=== PATIENT | male | born 1960 | race Caucasian/White ===

== ENCOUNTER 2016-12-11 16:53 | Observation (INO) | payer BC ==
[2016-12-11] MEDS ORDERED: SODIUM CHLORIDE 0.9% 1,000 ML IV ONE (17:13)
[2016-12-11] MEDS ORDERED: ACETAMINOPHEN 325 MG TABLET PO STA (17:14)
--- NOTE | 2016-12-11 17:17 | ED Physician Documentation ---
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 had bloating and abdominal pain overnight a week ago which went away after a few hours and hadn't had it since until this morning when it recurred and has been constant all day with right lower quadrant pain, mild nausea and fever without vomiting or changes in bowel movements.) Review of Systems Ten Systems: 10 systems reviewed and negative Constitutional: reports: Fever, Chills Cardiac: reports: Reviewed and negative Respiratory: reports: Reviewed and negative : reports: Reviewed and negative PD PAST MEDICAL HISTORY - Past Medical History Past Medical History: No - Allergies Allergies/Adverse Reactions: Allergies Allergy/AdvReac Type Severity Reaction Status Date / Time No Known Drug Allergies Allergy Verified 12/11/16 17:00 - Social History Does the pt smoke?: No Does the pt have substance abuse?: No - Family History Family history: reports: Non contributory PD ED PE NORMAL - Vitals Vital signs reviewed: Yes - General General: Alert and oriented X 3, No acute distress - HEENT HEENT: PERRL, EOMI - Neck Neck: Supple, no meningeal sign, No bony TTP - Cardiac Cardiac: RRR, No murmur - Respiratory Respiratory: No respiratory distress, Clear bilaterally - Abdomen Abdomen: Normal bowel sounds, Soft, Other (TTP RLQ no G/R) - Back Back: No CVA TTP, No spinal TTP - Derm Derm: Normal color, Warm and dry - Extremities Extremities: No edema, No calf tenderness / cord - Neuro Neuro: Alert and oriented X 3, Normal speech - Psych Psych: Normal mood, Normal affect Results - Vitals Vitals: Vital Signs - 24 hr 12/11/16 12/11/16 12/11/16 17:00 18:25 19:25 Temperature 38.4 C H 39.4 C H 39.4 C H Heart Rate 109 H 109 H Respiratory 20 20 Rate Blood Pressure 135/85 H 135/85 H O2 Saturation 96 96 12/11/16 19:38 Temperature 39.4 C H Heart Rate 116 H Respiratory 18 Rate Blood Pressure 152/78 H O2 Saturation 94 Oxygen O2 Source Room air - Labs Labs: Laboratory Tests 12/11/16 12/11/16 17:40 17:40 WBC 10.1 RBC 5.31 Hgb 15.6 Hct 46.5 MCV 87.6 MCH 29.3 MCHC 33.4 RDW 12.6 Plt Count 359 MPV 7.0 L Neut # 9.4 H Lymph # 0.6 L [place] # 0.1 Eos # 0.1 Baso # 0.0 Absolute Nucleated RBC 0.01 Nucleated RBCs 0.0 Sodium 139 Potassium 3.7 Chloride 102 Carbon Dioxide 27 Anion Gap 10.0 BUN 17 Creatinine 1.2 Estimated GFR (MDRD) 62 L Glucose 114 H Calcium 9.1 Total Bilirubin 0.8 AST 19 ALT 18 Alkaline Phosphatase 47 Total Protein 7.1 Albumin 4.1 Globulin 3.0 Albumin/Globulin Ratio 1.4 Lipase 29 - Rads (name of study) Ct A/P Radiology: EMP read contemporaneously (appendicitis) PD MEDICAL DECISION MAKING - ED course ED course: 56-year-old gentleman with fever and right lower quadrant pain certainly concerning for appendicitis. Spoke with the on-call surgeon after labs were resulted, Dr. Licona at 603 p.m., recommend CT scan, will see in consult. Departure - Departure Disposition: ED Transfer to [facility] Clinical Impression: Ruptured appendicitis Condition: Stable
[2016-12-11] MEDS ORDERED: ACETAMINOPHEN 325 MG TABLET PO ONE (17:22)
[2016-12-11 17:52] LABS: BASOPHILS % (AUTO) 0.2 %; EOSINOPHILS # (AUTO) 0.1 10^3/uL (0.0-0.7); EOSINOPHILS % (AUTO) 0.5 %; HCT - HEMATOCRIT 46.5 % (42.0-52.0); HGB - HEMOGLOBIN 15.6 g/dL (14.0-18.0); LYMPHOCYTES # (AUTO) 0.6 10^3/uL (1.5-3.5); MEAN CORPUSCULAR HEMOGLOBIN 29.3 pg (27.0-31.0); MEAN CORPUSCULAR HGB CONC 33.4 g/dL (32.0-36.0); MEAN CORPUSCULAR VOLUME 87.6 fL (80.0-94.0); MONOCYTES # (AUTO) 0.1 10^3/uL (0.0-1.0); MONOCYTES % (AUTO) 0.7 %; NEUTROPHILS # (AUTO) 9.4 10^3/uL (1.5-6.6); NEUTROPHILS % (AUTO) 92.6 %; RED BLOOD COUNT 5.31 10^6/uL (4.70-6.10); RED CELL DISTRIBUTION WIDTH 12.6 % (12.0-15.0); UNCORRECTED WHITE BLOOD COUNT 10.1 x10^3/uL; WHITE BLOOD COUNT 10.1 x10^3/uL (4.8-10.8)
[2016-12-11 18:04] LABS: ALBUMIN/GLOBULIN RATIO 1.4 (1.0-2.2); BILIRUBIN,TOTAL 0.8 mg/dL (0.2-1.0); CALCIUM 9.1 mg/dL (8.5-10.3); CREATININE 1.2 mg/dL (0.6-1.2); POTASSIUM 3.7 mmol/L (3.5-5.0); TOTAL PROTEIN 7.1 g/dL (6.7-8.2)
--- NOTE | 2016-12-11 18:39 | SURGERY HX AND PHYSICAL(T) ---
Surgery H&P - Surgery H&P Intial Eval Date: 12/11/16 Procedure Date: 12/11/16 - Vital Signs Temperature: 39.4 C Heart Rate: 109 Respiratory Rate: 20 Blood Pressure: 135/85 O2 Saturation: 96 - Home Meds and Allergies Allergies/Adverse Reactions: Allergies Allergy/AdvReac Type Severity Reaction Status Date / Time No Known Drug Allergies Allergy Verified 12/11/16 17:00 - Height & Weight Height: 1.85 m Weight (kg): 87.09 kg - Surgical H&P H&P: General Surgery H&P History of Present Illness - Stated complaint Stated Complaint: RT LOW ABD PX/VOMITING - Chief complaint Chief Complaint: General abdominal pain - History obtained from History obtained from: Patient HPI: 58 yo male reports 1 day history of generalized crampy abdominal pain, 3/10 , sharp which later localized to the right lower quadrant. It is associated with a fever of 103F and chills. He states he had an episode of crampy mild pain a week ago and nothing else until today. He states he has had a previous colonoscopy around 2009 and it showed diverticulosis. He denies any stool changes, blood in his stool. Denies N/V/D, No SOB or CP He denies any recent travel outside the [facility] or [employer] or [employer]. 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 He denies any medications or other previous medical history. Review of Systems Ten Systems: 10 systems reviewed and negative Constitutional: reports: Fever, Chills Cardiac: reports: Reviewed and negative Respiratory: reports: Reviewed and negative : reports: Reviewed and negative PD PAST MEDICAL HISTORY - Past Medical History Past Medical History: Diverticulosis, BPH Past Surgical HX: T&A as child, Vasectomy - Allergies Allergies/Adverse Reactions: Allergies Allergy/AdvReac Type Severity Reaction Status Date / Time No Known Drug Allergies Allergy Verified 12/11/16 17:00 - Social History Does the pt smoke?: No Does the pt have substance abuse?: No - Family History Family history: reports: Non contributory PD ED PE NORMAL - Vitals Vital signs reviewed: Yes - General General: Alert and oriented X 3, No acute distress - HEENT HEENT: PERRL, EOMI - Neck Neck: Supple, no meningeal sign, No bony TTP - Cardiac Cardiac: RRR, No murmur - Respiratory Respiratory: No respiratory distress, Clear bilaterally - Abdomen Abdomen: Normal bowel sounds, Soft, TTP RLQ, + [place]. Non-distended. No masses or hernias palpated. Rectal Good tone, mild enlarged prostate, Negative stool guaiac - Back Back: No CVA TTP, No spinal TTP - Derm Derm: Normal color, Warm and dry - Extremities Extremities: No edema, No calf tenderness / cord - Neuro Neuro: Alert and oriented X 3, Normal speech - Psych Psych: Normal mood, Normal affect Vital Signs (72 hours) 12/11/16 12/11/16 12/11/16 17:00 18:25 18:39 Temperature 38.4 C H 39.4 C H 39.4 C H Heart Rate 109 H 109 H Respiratory 20 20 Rate Blood Pressure 135/85 H 135/85 H O2 Saturation 96 96 Laboratory Results - last 24 hr 12/11/16 12/11/16 17:40 17:40 WBC 10.1 RBC 5.31 Hgb 15.6 Hct 46.5 MCV 87.6 MCH 29.3 MCHC 33.4 RDW 12.6 Plt Count 359 MPV 7.0 L Neut # 9.4 H Lymph # 0.6 L [place] # 0.1 Eos # 0.1 Baso # 0.0 Absolute Nucleated RBC 0.01 Nucleated RBCs 0.0 Sodium 139 Potassium 3.7 Chloride 102 Carbon Dioxide 27 Anion Gap 10.0 BUN 17 Creatinine 1.2 Estimated GFR (MDRD) 62 L Glucose 114 H Calcium 9.1 Total Bilirubin 0.8 AST 19 ALT 18 Alkaline Phosphatase 47 Total Protein 7.1 Albumin 4.1 Globulin 3.0 Albumin/Globulin Ratio 1.4 Lipase 29 12/11/16 CT Abd/P without contrast: personal read followed by preliminary Acute appendicitis A: 58 yo male with acute appendicitis possibly early rupture NPO, IV abx with Zosyn 3.375 gm q 6 hours LR IV at 150 PT, PTT, UA type and screen OR today for Laparoscopic appendectomy possible open appendectomy Options and Risks & Benefits of surgery were discussed with patient including but not limited to , Bleeding, Infection, Risk of perforation, Anesthesia risks , Risk of already perforated appendix and abscess which would require a longer hospital stay and possibly a drain placement. risk of postoperative hernias, scars and skin irregularities. Risks of driving or flying while on narcotics were specifically discussed. All questions answered.
[2016-12-11] MEDS ORDERED: IBUPROFEN 800 MG TABLET PO STA (18:40)
[2016-12-11] MEDS ORDERED: IBUPROFEN 800 MG TABLET PO ONE (18:42)
[2016-12-11] MEDS ORDERED: IOPAMIDOL-300 100 ML VIAL IVP ONE (18:45)
[2016-12-11] MEDS ORDERED: PIPERACILLIN/TAZOBACTAM 3.375 GM in SODIUM CHLORIDE 0.9% MINIBAG 100 ML IV STA (18:48)
--- NOTE | 2016-12-11 19:15 | CT Preliminary Report ---
Exam: CT Abdomen/Pelvis W/ IMPRESSION: 1. Positive for acute appendicitis. No free air, bowel obstruction, or abscess. [facility] SITE ID: [id number]
--- NOTE | 2016-12-11 19:18 | CT Report ---
EXAM: CT ABDOMEN AND PELVIS EXAM DATE: 12/11/2016 06:44 PM. CLINICAL HISTORY: IV only, RLQ pain. COMPARISONS: None. TECHNIQUE: Routine helical CT imaging was performed through the abdomen and pelvis. IV contrast: 100 cc Isovue-300 IV. Enteric contrast: No. Reconstructions: Coronal and sagittal. In accordance with CT protocol optimization, one or more of the following dose reduction techniques w ere utilized for this exam: automated exposure control, adjustment of mA and/or KV based on patient s ize, or use of iterative reconstructive technique. FINDINGS: Lung Bases: Unremarkable. Liver: Normal. No masses. Gallbladder/Bile Ducts: Unremarkable. Spleen: Normal. Pancreas: Normal. Adrenal Glands: Normal. Kidneys: Normal. No masses or hydronephrosis. Peritoneal Cavity/Bowel: Normal. No free fluid, free air or adenopathy. No masses or acute inflammato ry process. The appendix is dilated with a thickened hyperenhancing wall and surrounding advanced inf lammation. The appendix measures up to 16 mm in outer diameter and is fluid-filled. There is no free air. No organized drainable abscess. Pelvic Organs: There is very small free fluid in the low pelvis. Vasculature: No aneurysms or other significant abnormality. Bones: There is moderate degenerative disk disease at L4-L5. Other: None. IMPRESSION: 1. Positive for acute appendicitis. No free air, bowel obstruction, or abscess. [facility] Referring Provider Line: [phone] SITE ID: [id number]
[2016-12-11 19:31] LABS: INR 1.1 (0.8-1.2); PT - PROTHROMBIN TIME 12.6 secs (9.9-12.6)
[2016-12-11 19:38] LABS: PARTIAL THROMBOPLASTIN TIME 21.4 secs (24.9-33.3)
[2016-12-11 19:58] LABS: BILIRUBIN,URINE NEGATIVE (NEGATIVE); PH,URINE 6.5 PH (5.0-7.5)
[2016-12-11] MEDS ORDERED: NEOSTIGMINE 1 MG/1 ML 10 ML MDV IVP ONE (20:00)
[2016-12-11] MEDS ORDERED: SUCCINYLCHOLINE 200 MG/10 ML VIAL IVP ONE (20:00)
[2016-12-11] MEDS ORDERED: ACETAMINOPHEN 1,000 MG/100 ML VIAL IV ONE (20:00)
[2016-12-11] MEDS ORDERED: MIDAZOLAM 2 MG/2 ML VIAL IVP ONE (20:00)
[2016-12-11] MEDS ORDERED: GLYCOPYRROLATE 1 MG/5 ML VIAL IVP ONE (20:00)
[2016-12-11] MEDS ORDERED: PROPOFOL 200 MG/20 ML VIAL IVP ONE (20:00)
[2016-12-11] MEDS ORDERED: DEXAMETHASONE 4 MG/ML VIAL IVP ONE (20:00)
[2016-12-11] MEDS ORDERED: KETOROLAC 30 MG/ML VIAL IVP ONE (20:00)
[2016-12-11] MEDS ORDERED: LIDOCAINE-MPF 2% 5 ML VIAL IM ONE (20:00)
[2016-12-11] MEDS ORDERED: fentaNYL 100 MCG/2 ML VIAL IVP ONE (20:00)
[2016-12-11] MEDS ORDERED: ONDANSETRON 4 MG/2 ML VIAL IVP ONE (20:00)
[2016-12-11] MEDS ORDERED: ROCURONIUM 50 MG/5 ML VIAL IVP ONE (20:00)
[2016-12-11 20:21] LABS: WBC,URINE 0-3 /HPF (0-3)
[2016-12-11] MEDS ORDERED: LACTATED RINGERS 1,000 ML IV ONE ×2 (20:28→21:21)
[2016-12-11] MEDS ORDERED: BUPIVACAINE 0.5%-EPI 1:200000 PF 30 ML VIAL SUBQ ONE (20:51)
[2016-12-11] MEDS ORDERED: PIPERACILLIN/TAZOBACTAM 3.375 GM in SODIUM CHLORIDE 0.9% MINIBAG 100 ML IV SCH ×2 (23:00→23:45)
[2016-12-11] MEDS ORDERED: ONDANSETRON 4 MG/2 ML VIAL IVP PRN (23:35)
[2016-12-11] MEDS ORDERED: PHENOL THROAT SPRAY 177 ML MM PRN (23:35)
[2016-12-11] MEDS ORDERED: SODIUM CHLORIDE FLUSH 0.9% 10 ML SYRINGE IVP PRN (23:35)
[2016-12-11] MEDS ORDERED: MORPHINE 2 MG/ML SYRINGE IVP PRN (23:35)
[2016-12-12] MEDS: PIPERACILLIN/TAZOBACTAM 3.375 GM in SODIUM CHLORIDE 0.9% MINIBAG 100 ML IV SCH ×2 (00:54→08:35)
[2016-12-12] MEDS: LACTATED RINGERS 1,000 ML IV SCH ×2 (00:56→08:34)
[2016-12-12] MEDS ORDERED: MORPHINE 2 MG/ML SYRINGE ONE (02:45)
[2016-12-12] MEDS ORDERED: KETOROLAC 15 MG/ML VIAL ONE ×2 (02:46→11:42)
[2016-12-12] MEDS ORDERED: ACETAMINOPHEN 1,000 MG/100 ML 100 ML IV ONE (02:46)
[2016-12-12] MEDS: ACETAMINOPHEN 1,000 MG/100 ML 100 ML IV SCH ×2 (03:00→10:47)
--- NOTE | 2016-12-12 04:24 | OPERATIVE REPORT ---
DATE OF SURGERY: 12/11/2016 00:00:00 PREOPERATIVE DIAGNOSIS: Acute appendicitis. POSTOPERATIVE DIAGNOSIS: Acute appendicitis with contained tip rupture. NAME OF PROCEDURE: Laparoscopic appendectomy. SURGEON: Ashkan Licona DO [employer] DIRECTOR: Hoda Jimenez ANESTHESIA: General by Juan Alberto Fam CRNA FINDINGS: Acute appendicitis with contained tip rupture. SPECIMEN: Appendix. COMPLICATIONS: None. ESTIMATED BLOOD LOSS: 20 mL. URINE OUTPUT: 175 mL. IV FLUIDS: 1200 mL. INDICATIONS: This 56-year-old male presented with right lower quadrant pain for 1 day duration associated with fever of 39.4 degrees Celsius and chills, without a leukocytosis. Computer tomography scan was consistent with acute appendicitis. A laparoscopic, possible open procedure as well as other options, were discussed with the patient. The risks and benefits including, but not limited to infection, bleeding, risk of abscess, risk of fistula, anesthesia risks scar formation, and skin irregularities as well as ventral hernias were discussed with the patient. The patient agreed to the procedure and signed consent. All questions were answered. DESCRIPTION OF PROCEDURE: The patient was taken to the operating room and placed in the supine position. General anesthesia was induced after SCDs were placed. A Stanton catheter was placed. Arms were tucked. The patient had been given IV Zosyn in the ED, and Ancef perioperatively. The patient was prepped and draped in usual sterile fashion. A timeout was completed verifying correct patient, procedure, site, position prior to start of procedure. Bupivacaine 0.5 % with epinephrine was used supraumbilically for a Veress needle entry as well as all trocar sites. A #15 blade puncture was created through the skin. The Veress needle was passed through the abdominal wall. Proper position was confirmed by aspiration and saline meniscus test. A 5 mm Optiview trocar was placed umbilically under direct vision. A second 5 mm trocar was placed suprapubically under direct vision. A 5 mm trocar was placed in the left lower quadrant under direct vision. The abdomen and pelvis were scanned with no signs of injury from the Veress needle. No gross pelvic disease was observed. The 5 mm umbilical trocar was exchanged for a 12 mm trocar under direct vision. The patient was then placed in Trendelenburg with left side down. The appendix base was clearly visualized, while the tip and the distal body were noted to be retrocecal and adhesed to the right lateral parietal peritoneum. The base of the appendix was grasped with a [place] and careful lateral dissection between the peritoneal wall and appendix was performed using blunt and hydrodissection, as well as, with the LigaSure. The appendix was freed from the adhesions, and the appendiceal tip was found to be acutely ruptured with a localized contained collection of pus, which was suctioned. The mesoappendix was dissected with a [place] and ligated with the LigaSure. The appendix was rather edematous. A single 45 mm blue load was fired across the base of the appendix with complete transection. The abdomen was irrigated with 2 liters of saline and suctioned. Hemostasis was maintained. The staple line was inspected and found to be intact with no sign of leakage or active bleeding. The appendix was then removed through the umbilical port. An Endo-close was used with 0 Vicryl to close the fascia of the 12 mm port followed by 2-0 Vicryl interrupted [id number] sutures under direct vision. The skin was then washed copiously and dried followed by 4-0 Monocryl sutures for subcuticular closure and then application of Mastisol, Steri-Strips, then gauze and Tegaderms. The appendix was examined on the back table and no appendicoliths were palpated and then it was sent to pathology. The patient tolerated the procedure well, was extubated, Stanton removed, and taken to PACU for recovery. All counts were correct. JOB #: [id number] EXT JOB #:[id number] LOYDA
[2016-12-12] MEDS: KETOROLAC 15 MG/ML VIAL IVP PRN ×2 (04:42→11:46)
[2016-12-12 05:24] LABS: CALCIUM 8.1 mg/dL (8.5-10.3); CREATININE 1.2 mg/dL (0.6-1.2); POTASSIUM 4.3 mmol/L (3.5-5.0)
[2016-12-12 05:31] LABS: BASOPHILS % (AUTO) 0.1 %; EOSINOPHILS % (AUTO) 0.1 %; HGB - HEMOGLOBIN 13.7 g/dL (14.0-18.0); LYMPHOCYTES % (AUTO) 2.3 %; MEAN CORPUSCULAR HEMOGLOBIN 29.1 pg (27.0-31.0); MEAN CORPUSCULAR HGB CONC 32.6 g/dL (32.0-36.0); MEAN CORPUSCULAR VOLUME 89.2 fL (80.0-94.0); MEAN PLATELET VOLUME 7.1 fL (7.4-11.4); MONOCYTES % (AUTO) 6.5 %; UNCORRECTED WHITE BLOOD COUNT 18.1 x10^3/uL; WHITE BLOOD COUNT 18.1 x10^3/uL (4.8-10.8)
[2016-12-12] MEDS: SODIUM CHLORIDE FLUSH 0.9% 10 ML SYRINGE IVP SCH ×2 (05:54→11:46)
[2016-12-12 06:17] LABS: BAND NEUTROPHILS % (MANUAL) 13 %; LYMPHOCYTES % (MANUAL) 2 %; NEUTROPHILS % (MANUAL) 79 %; NP AUTO DIFFERENTIAL? YES; NP MAN DIFFERENTIAL? NO; PLATELET ESTIMATE, MANUAL NORMAL (130-450,000) (NORMAL); TOTAL CELLS COUNTED 100
[2016-12-12] MEDS ORDERED: LACTATED RINGERS 1,000 ML IV ONE (08:19)
--- NOTE | 2016-12-12 08:58 | OPERATIVE REPORT ---
Operative Report - General Admit Date: 12/11/16 Procedure Date: 12/11/16 Pre-Op Diagnosis: Acute Appendicitis Operative Procedure: laparoscopic appendectomy Post-Op Diagnosis: Acute appendicitis with contained tip rupture - Procedure Note Anesthesia Technique: Primary Surgeon: Ashkan Licona DO Pathology: pending Estimated Blood Loss (in cc): 20 Complications: none - Other Other Information/Narrative: please see dictated op note
--- NOTE | 2016-12-12 09:04 | PROVIDER PROGRESS NOTE ---
Subjective - General Admit Date: 12/11/16 Procedure Date: 12/11/16 Post Op Days: 1 Procedure Performed: Laparoscopic Appendectomy - Review of Systems Wound/Incisions: positive: Dressing dry and intact Drain Type: none General: positive: No symptoms HEENT: positive: No symptoms Pulmonary: positive: No symptoms Cardiovascular: positive: No symptoms Gastrointestinal: positive: No symptoms Genitourinary: positive: No symptoms Musculoskeletal: positive: No symptoms Skin: positive: No symptoms Psychiatric: positive: No symptoms All Other Systems: positive: Reviewed and negative - Other Other Information/Narrative: Patient seen at bedside.He has done well post operatively. He states he feels good. Using incentive spirometer He has urinated, tolerated clears and is able to stand with out pain. Denies flatus. He stated that he has gone to urinate several times but small amounts of urine comes out. Bladder scan showed only 113 mL in bladder. No other events reported Objective - Patient Data Vital Signs: Vital Signs x48h Temp Pulse Resp BP Pulse Ox 12/12/16 08:11 36.5 C 80 18 118/75 97 12/12/16 06:59 36.5 C 73 18 109/66 98 12/12/16 03:10 36.6 C 96 18 130/78 97 12/12/16 02:13 36.8 C 89 16 129/79 98 12/12/16 01:10 36.7 C 82 18 123/75 99 Weight: Weight 12/10/16 12/11/16 12/12/16 23:59 23:59 23:59 Weight (kg) 87 kg Intake & Output: Intake and Output Totals x24h 12/10/16 12/11/16 12/12/16 23:59 23:59 23:59 Intake Total 1060 Output Total 300 Balance 760 - Lab Results Lab Results: 12/12/16 04:35 12/12/16 04:35 Other Lab Results: Lab Results x24hrs 12/12/16 12/12/16 Range/Units 04:35 04:35 WBC 18.1 H (4.8-10.8) x10^3/uL RBC 4.70 (4.70-6.10) 10^6/uL Hgb 13.7 L (14.0-18.0) g/dL Hct 42.0 (42.0-52.0) % MCV 89.2 (80.0-94.0) fL MCH 29.1 (27.0-31.0) pg MCHC 32.6 (32.0-36.0) g/dL RDW 13.0 (12.0-15.0) % Plt Count 330 (130-450) 10^3/uL MPV 7.1 L (7.4-11.4) fL Neut # Not Reportable Lymph # Not Reportable Glenn # Not Reportable Eos # Not Reportable Baso # Not Reportable Absolute Nucleated RBC Not Reportable Total Counted 100 Band Neuts % (Manual) 13 H (0 - 10) % Neutrophils # (Manual) 16.7 H (1.5-6.6) 10^3/uL Lymphocytes # (Manual) 0.4 L (1.5-3.5) 10^3/uL Monocytes # (Manual) 1.1 H (0.0-1.0) 10^3/uL Nucleated RBCs Not Reportable Differential Comment MANUAL DIFFERENTIAL Platelet Estimate NORMAL (130-450,000) (NORMAL) RBC Morph Micro Appear NORMAL APPEARANCE (NORMAL) Sodium 139 (135-145) mmol/L Potassium 4.3 (3.5-5.0) mmol/L Chloride 104 (101-111) mmol/L Carbon Dioxide 26 (21-32) mmol/L Anion Gap 9.0 (6-13) BUN 15 (6-20) mg/dL Creatinine 1.2 (0.6-1.2) mg/dL Estimated GFR (MDRD) 62 L (>89) Glucose 144 H (70-100) mg/dL Calcium 8.1 L (8.5-10.3) mg/dL - Current Medications Current Medications: Current Medications Generic Name Dose Route Start Last Admin Trade Name Freq PRN Reason Stop Dose Admin Acetaminophen 100 mls @ 400 mls/hr 12/12/16 03:00 12/12/16 03:00 Ofirmev IV 400 mls/hr Q6H BECKA Administration Piperacillin Sod/Tazobactam 100 mls @ 25 mls/hr 12/12/16 00:30 12/12/16 08:35 Sod 3.375 gm/ Sodium Chloride IV 25 mls/hr Q8H BECKA Administration Ketorolac Tromethamine 15 mg 12/11/16 23:35 12/12/16 04:42 Toradol Inj IVP 12/16/16 23:34 15 mg Q6H PRN Administration PAIN Morphine Sulfate 2 mg 12/11/16 23:35 12/12/16 05:49 Morphine IVP 2 mg Q2HR PRN Administration PAIN Sodium Chloride 10 ml 12/12/16 06:00 12/12/16 05:54 Normal Saline Flush 0.9% IVP Not Given Q8HR BECKA - Physical Exam Wound/Incisions: positive: Dressing dry and intact General Appearance: positive: No acute distress ENT: positive: ENT inspection nml Neck: positive: Nml inspection Respiratory: positive: No respiratory distress, Breath sounds nml Cardiovascular: positive: Regular rate & rhythm Abdomen: positive: Nml bowel sounds (+BS, soft, mild tender to palpation near surgical wounds. Surgical site dressings C/D/I). negative: Guarding, Rebound Extremities: positive: Non-tender, Full ROM Neurologic/Psychiatric: positive: Oriented x3, CN's nml (2-12) Impression/Plan - Problem List Problem List: 56 yo male with Acute appendicitis with contained tip rupture. Continue abx Encourage continued ambulation, and IS use. Advance diet to regular. If tolerates diet will discharge home today on Cipro , Flagyl, and [place] Discussed increased risks of intrabdominal abscess formation, and skin infections because of localized pus collection, and possible need for drain by IR if thats the case. All questions answered. Will have him follow up in clinic in 1 week
[2016-12-12] MEDS ORDERED: SODIUM CHLORIDE FLUSH 0.9% 10 ML SYRINGE IVP ONE (11:44)
[2016-12-12] MEDS ORDERED: TAMSULOSIN 0.4 MG CAPSULE PO SCH (12:00)
--- NOTE | 2016-12-12 12:42 | Discharge Plan ---
Discharge Plan Disposition: Home, Self Care Condition: Stable Prescriptions: Hydrocodone/Acetaminophen [[place] 5-325 Tablet] 1 each PO Q6HR PRN #20 tablet PRN Reason: Pain Metronidazole [Flagyl] 500 mg PO Q8HR #14 tablet Ciprofloxacin HCl [Cipro] 500 mg PO BID #14 tablet Tamsulosin [Flomax] 0.4 mg PO DAILY #10 capsule Metoclopramide [Reglan] 10 mg PO Q6H #20 tablet Diet: Regular Activity Restrictions: Activity as Tolerated Shower Restrictions: No Driving Restrictions: Yes (Do not drive, Fly, use heavy equiptment or sign contracts while on narcotic) Weight Bearing: Full Weight Instruction Topics: Appendicitis, Appendectomy Laparoscopic Dc Additional Instructions or Follow Up instructions: No heavy lifting for 4 weeks. Continue ambulating 3 times a day for 30 minutes. Continue using incentive spirometer. Begin probiotics and Ensure 8 oz orally twice daily as tolerated Urination should return to normal over next week. Call Dr. Licona if you have any questions 21/02. You are at increased risk for intrabdominal abscess formation and skin infections. If beginning to have abdominal pain or fevers, nausea or vomiting, call me for further instructions or if severe, go to emergency room for evaluation No Smoking: If you smoke, Please STOP! Call for help. Follow-up with: Ashkan Licona DO [Provider Admit Priv/Credential] - 1 Week
[2016-12-12 13:07] VITALS: BP 127/87
--- NOTE | 2016-12-13 02:13 | DISCHARGE SUMMARY ---
DATE OF ADMISSION: 12/11/2016 DATE OF DISCHARGE: 12/12/2016 ATTENDING PHYSICIAN: Ashkan Licona DO FINAL DIAGNOSIS: Acute appendicitis with contained tip rupture. PROCEDURE: Laparoscopic appendectomy. CONDITION ON DISCHARGE: Improved. HISTORY OF PRESENT ILLNESS: This pleasant 56-year-old male, with past medical history of BPH and diverticulosis, presented with approximately a 1-day duration of sharp, crampy right lower quadrant abdominal pain associated with fever of 39.4 degrees Celsius and chills which began unbearable, so he came to the emergency department. MEDICATIONS: He denies taking any medications on a regular basis. ALLERGIES: DENIED ANY ALLERGIES. LABORATORY DATA: His WBC was 10.1 thousand. IMAGING: CT scan of abdomen and pelvis was positive for acute appendicitis without abscess. HOSPITAL COURSE: The patient was started on lactated Ringer's, and Zosyn was begun. The operative team was notified, and the patient was taken to surgery for a laparoscopic appendectomy (see OR dictation). The patient was recovered by the PACU team. He was continued on Zosyn postoperatively, kept on IV acetaminophen, and given Toradol and morphine for pain as needed. Postoperatively he complained of decreased urine output when urinating, putting out 100-200 mL voids. Bladder scan showed only 100 mL in bladder at the scanned time. He was started on Flomax. He was ambulating well, pain well controlled using incentive spirometer, and tolerating meals. DISCHARGE MEDICATIONS The patient was given: 1. [place] 5/325 mg 1 tab orally q.6 hours as needed for pain #20. 2. Cipro 500 mg orally q.12 hours #14. 3. Flagyl 500 mg orally q.8 hours #21. 4. Reglan 10 mg 1 tab orally q.6 hours as needed #20. 5. Flomax 0.4 mg 1 tab orally daily #10. DISCHARGE INSTRUCTIONS: Instructions were given to the patient before and after surgery. The patient was instructed no heavy lifting for the next few weeks. Ambulate 30 minutes 3 times daily starting 12/12/2016, to continue diet as tolerated, and use incentive spirometer. The patient was also instructed that he may need Colace [id number] if constipated, and if constipation lasts longer than 48 hours, he should call me for further instructions. Patient instructed not to drive, fly, or use heavy equipment while on narcotics. He may substitute Motrin 600 mg every 6 hours instead of [place]. 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 He was instructed to leave the dressing on for 48 hours and then may remove the outer dressing and may shower with the dressings on, and once the dressing is off to pat the area and not to rub the surgical sites while bathing. He was instructed that if urination flow did not return to normal in the next few days with the Flomax, he would need to see his urologist. He was instructed to take antibiotics as directed, and if he developed recurrent abdominal pain, fevers, or chills, to go to the Emergency Department to make sure he does not have an abscess. He was instructed to call me 21/02 with any questions or concerns. FOLLOWUP APPOINTMENTS: The patient was instructed to call the clinic 12/13/2016 for an appointment with me the following week. CODE STATUS: FULL CODE. 22:9:00 JOB #: [id number] [facility] JOB #:[id number] MTDD
== END 2016-12-12 14:04 | disposition home or self-care (01) ==
LOC: ED 16:53 → SDS 19:00 → MS 23:29
PROVIDERS: ADMIT Surgery; ATTEND Surgery
PROC: 0DTJ4ZZ Resection of Appendix, Percutaneous Endoscopic Approach (ICD-10-PCS; principal; 2016-12-11 20:30)
DX: K35.3 Acute appendicitis with localized peritonitis (principal); K38.8 Other specified diseases of appendix; N40.1 Benign prostatic hyperplasia with lower urinary tract symptoms; R39.89 Other symptoms and signs involving the genitourinary system; K57.30 Diverticulosis of large intestine without perforation or abscess without bleeding
CPT/HCPCS: 36415; 44970; 74177; 80048; 80053; 81001; 83690; 85025; 85610; 85730; 86850; 86900; 86901; 96361; 96365; 99283; 99285; A9270; G0378; J0131; J7120; Q9967; 88304